=== PATIENT | male | born 1995 | race Caucasian/White ===

== ENCOUNTER 2017-06-01 22:12 | Emergency (ER) | payer OTHER ==
[~2017-06-01] VITALS: Ht 182.9 cm; Wt 59.0 kg
--- NOTE | ~2017-06-01 | OR ---
Unit #: [id number] #: [id number] Patient: KIMBERLY BOO [id number] [address] [facility]. [place], [place] [address] [id number] E MR#: [id number] NAME: KIMBERLY BOO ROOM: Date of Procedure: 06/01/2017 Admission Date: 06/01/2017 Surgeon: Arnaldo Christopher III, M.D. : 1995 Attending Physician: Miles Valles D.O. OPERATIVE REPORT PREOPERATIVE DIAGNOSIS Acute appendicitis. POSTOPERATIVE DIAGNOSIS Acute appendicitis. PROCEDURE PERFORMED Laparoscopic appendectomy. SEO CONSULTANT None. ANESTHESIA General endotracheal tube anesthesia. SPECIMENS Appendix to pathology. COMPLICATIONS None apparent. INDICATIONS FOR PROCEDURE This is a 22-year-old gentleman, who presented with right lower quadrant pain and the other workup consistent with appendicitis. He is here today for laparoscopic appendectomy. DESCRIPTION OF PROCEDURE After consent was obtained, the patient was brought to the operating room and placed in the supine position. General anesthetic was administered. His abdomen was prepped and draped in standard surgical fashion. I made a 1 cm incision just above the umbilicus. I elevated the fascia between 2 Alan clamps and used a Veress needle to obtain CO2 pneumoperitoneum. I then used a 5-mm trocar to enter into the peritoneal cavity without any problems. I then placed a 12-mm port in the right lateral abdomen and a 5-mm port in the suprapubic region. He had a dilated appendix that was not perforated. I was able to easily elevate the appendix and mobilized it and created a window at the base of the appendix and the mesoappendix. I then fired a blue load of the CLARISA stapler across the base of the appendix and a white load across the mesoappendix. I had excellent hemostasis. The gallbladder was extracted through the right lateral port incision without any difficulty. All needle, sponge, and instrument counts were correct x2. I removed all the trocars. Pneumoperitoneum was Unit #: [id number] #: [id number] Patient: KIMBERLY BOO released. I injected all the port sites with 0.25% plain Marcaine. I reapproximated the fascia at the right lateral port incision with an interrupted 0 Vicryl suture. The skin edges were reapproximated with interrupted 4-0 Vicryl subcuticular suture. Steri-Strips were then applied. The patient tolerated the procedure without any problems and returned to the recovery room in stable condition. Dictated by... Arnaldo Christopher III, M.D. VCL/cesario TD: 06/01/2017 18:05 JOB #: [id number] OPERATIVE REPORT Page 1 of 1 X Arnaldo Christopher III, MD PROCEDURE OPERATIVE NOTE
[2017-06-02 01:01] LABS: URINE SOURCE CLEAN CATCH
[2017-06-02 01:18] LABS: URINE APPEARANCE CLEAR; URINE COLOR YELLOW; URINE LEUKOCYTE ESTERASE NEG (NEG); URINE NITRATE NEG (NEG); URINE PROTEIN 1+ (NEG)
[2017-06-02 01:19] LABS: CULTURE INDICATED? NO; URINE BILIRUBIN NEG (NEG); URINE BLOOD NEG (NEG); URINE GLUCOSE NORM (NEG); URINE KETONE 3+ (NEG); URINE UROBILINOGEN NORM (NEG)
== END 2017-06-02 02:10 | disposition home or self-care (01) ==
LOC: CED 22:12
PROVIDERS: Emergency Medicine
DX: R33.8 Other retention of urine (principal); F17.200 Nicotine dependence, unspecified, uncomplicated; Z90.89 Acquired absence of other organs; Z88.8 Allergy status to other drugs, medicaments and biological substances
CPT/HCPCS: 51702; 81003; 99283

== ENCOUNTER → 2017-06-01 | Day surgery (SDC) | payer OTHER ==
[~2017-06-01] MED LIST: IBUPROFEN800 MG PO; MOTRIN400 MG PO; PHENERGAN25 MG PO; PROAIR HFA8.5 GM INH; ROBITUSSIN DM118 ML PO; TYLENOL #3 PO
--- NOTE | ~2017-06-01 | HP ---
Unit #: [id number] #: [id number] Patient: KIMBERLY BOO [id number] [address] [place], [place] [address] [id number] E MR#: [id number] NAME: KIMBERLY BOO ROOM: Age: 22 Sex: M Admission Date: 06/01/2017 : 1995 Attending Physician: Jake Brandon P.A.-C. Primary Care Physician: Lola Krishnan M.D. HISTORY AND PHYSICAL CHIEF COMPLAINT Abdominal pain. HISTORY OF PRESENT ILLNESS This is a 22-year-old gentleman who has had a 36-hour history of right lower quadrant pain. He describes it as sharp. There has been no nausea or vomiting and no change in bowel habits, and he has had no prior episodes of ill contacts. PAST MEDICAL HISTORY First degree heart block. PAST SURGICAL HISTORY 1. Tonsillectomy. 2. [place] teeth extraction. 3. Varicose vein surgery. MEDICATIONS He is on no routine medications. ALLERGIES No known drug allergies. FAMILY HISTORY His dad has malignant hyperthermia. SOCIAL HISTORY He does smoke. He denies any alcohol use. REVIEW OF SYSTEMS Negative for fevers, jaundice, or weight loss and is otherwise as above. PHYSICAL EXAMINATION VITAL SIGNS: Temperature is 98.3, heart rate 77, respiratory rate 17, and blood pressure is 116/78. GENERAL: He is in no acute distress. HEENT: Pupils are equal and reactive to light and accommodation. His extraocular muscles are intact. NECK: Without masses or bruits. LUNGS: Equal breath sounds bilaterally with equal air exchange. CARDIAC: Regular rate and rhythm without murmur. ABDOMEN: Soft and nondistended. He has 2 to 3+ tenderness in the right lower quadrant with no peritoneal signs. EXTREMITIES: Without edema or cyanosis. Unit #: [id number] #: [id number] Patient: KIMBERLY BOO NEUROLOGIC: He is alert and oriented. There are no focal deficits. DIAGNOSTIC STUDIES LABORATORY: He had a leukocytosis. IMAGING: CT scan showed appendicitis. OVERALL IMPRESSION This is a 22-year-old gentleman who has a acute appendicitis. I talked to him about proceeding with laparoscopic appendectomy. I described the risks and benefits, and he understands and wishes to proceed. Dictated by Arnaldo Christopher III, M.D. VCL/am TD: 06/01/2017 19:08 JOB #: [id number] HISTORY AND PHYSICAL Page 1 of 1 X Arnaldo Christopher III, MD X HISTORY AND PHYSICAL
--- NOTE | ~2017-06-01 | CT2 ---
[facility] A Service of [facility] RADIOLOGY TEXT RESULTS PATIENT: KIMBERLY BOO LOCATION: [facility] : [birth year] UNIT #: [id number] AGE: [address]: Jake Brandon SEX: M ORDER DR: [id number] [facility] [address] [facility]. [place], [place] [address] [id number] E MR#: [id number] Acc #: [id number] NAME: KIMBERLY BOO : 1995 SEX: M STUDY DATE/TIME: 06/01/2017 03:29 UNIT: [facility] ROOM: STUDY DESCRIPTION: CT Abd and Pelv W Cont Attending Physician: Jake Brandon P.A.-C. Ordering Physician: Jake Brandon P.A.-C. Primary Care Physician: Lola Krishnan M.D. MEDICAL IMAGING REPORT This report is preliminary unless electronic signature is present EXAM Abdomen and pelvis CT, 06/01 at 03:29 INDICATION Right side abdominal pain for the last 2 days. TECHNIQUE Axial images were obtained through the abdomen and pelvis following IV contrast administration. Multiplanar reformats were obtained. This CT exam was performed with one or more of the following radiation dose reduction techniques: automatic exposure control, adjustment of mA and/or kV according to patient size, and iterative reconstruction. COMPARISON No comparison FINDINGS ABDOMEN: The lung bases are clear. Gallbladder is contracted. Solid organs are normal. Unopacified GI tract is normal. No free fluid is seen. PELVIS: The appendix is enlarged with a thick wall and is fluid-filled. It measures 11.0 mm in diameter. There is adjacent fat stranding. Findings are compatible with acute appendicitis. No abscess is identified. The remainder of the unopacified GI tract is normal. There is trace amount of dependent free fluid in the pelvis. Urinary bladder is not well distended but is grossly normal. IMPRESSION 1. Study is positive for acute appendicitis. No abscess is identified. There is some nonspecific dependent free fluid in the pelvis. 2. The remainder of the abdomen and pelvis CT is normal. [facility] A Service of [facility] RADIOLOGY TEXT RESULTS PATIENT: KIMBERLY BOO LOCATION: [facility] : [birth year] UNIT #: [id number] AGE: [address]: Jake Brandon PAC SEX: M ORDER DR: Dictated by... Nick Narvaez Jr., M.D. THIS IS AN ELECTRONICALLY VERIFIED REPORT Nick Narvaez Jr., M.D. at 06/01/2017 9:23 PM SHERLY/mark TD: 06/01/2017 15:27 JOB #: [id number] MEDICAL IMAGING REPORT Page 1 of 1 COPY
[2017-06-01 01:22] LABS: BASOPHIL% 0.3 % (0-2.5); EOSINOPHIL# 0.2 X10e3 (0-0.7); EOSINOPHIL% 1.6 % (0.0-7.0); HEMOGLOBIN 14.8 gm/dL (13.0-16.0); LYMPHOCYTE# 3.4 X10e3 (1.0-3.5); LYMPHOCYTE% 27.8 % (17.0-45.0); MEAN CORPUSCULAR HEMOGLOBIN 30.5 PG (28-34); MEAN CORPUSCULAR HGB CONC 33.5 g/dL (30-36); MEAN PLATELET VOLUME 9.2 FL (6.5-11.5); MONOCYTE% 8.4 % (3.0-12.0); NEUTROPHIL# 7.5 X10e3 (1.5-7.1); NEUTROPHIL% 61.9 % (40-75); PLATELET COUNT 158 X10e3 (140-420); RED BLOOD COUNT 4.84 X10e (3.90-5.60); RED CELL DISTRIBUTION WIDTH 12.4 % (11.0-15.5); WHITE BLOOD COUNT 12.1 X10e3 (4.0-10.5)
[2017-06-01 01:38] LABS: DIFF IND NO
[2017-06-01 01:52] LABS: ALBUMIN SERUM 4.5 g/dL (3.5-5.0); BILIRUBIN, DIRECT 0.1 mg/dL (0.0-0.2); BILIRUBIN,INDIRECT 0.9 mg/dL (0.0-0.9); BUN/CREATININE RATIO 12.22; CALCIUM SERUM 9.3 mg/dL (8.4-10.2); CREATININE SERUM 0.9 mg/dL (0.6-1.4); GLOM FILT RATE Estimated 122.5 mL/min (>60); POTASSIUM 3.6 mmol/L (3.5-5.1); PROTEIN TOTAL SERUM 7.1 g/dL (6.0-8.3)
[2017-06-01 02:36] LABS: URINE SOURCE CLEAN CATCH
[2017-06-01 02:44] LABS: URINE APPEARANCE CLEAR; URINE BLOOD NEG (NEG); URINE COLOR DK YELLOW; URINE GLUCOSE NEG (NEG); URINE KETONE NEG (NEG); URINE LEUKOCYTE ESTERASE 1+ (NEG); URINE NITRATE NEG (NEG); URINE PH 6.5 (5-8); URINE PROTEIN TRACE (NEG); URINE SPECIFIC GRAVITY 1.021 (1.003-1.035)
[2017-06-01 02:47] LABS: CULTURE INDICATED? YES; URINE BACTERIA AUWI NEG (NEGATIVE); URINE SQUAMOUS EPITHELIAL CELL OCC /[HPF]
[2017-06-01 02:49] LABS: URINE BILIRUBIN POS (NEG)
== END | disposition home or self-care (01) ==
LOC: CED → CSUR 07:17
DX: K35.80 Unspecified acute appendicitis (principal); F17.210 Nicotine dependence, cigarettes, uncomplicated
CPT/HCPCS: 36415; 74177; 80048; 80076; 81003; 82150; 83690; 85025; 87086; 88304; 96361; 96365; 99285; J2250; J2405; J2543; J3010; Q9967